=== PATIENT | male | born 1970 | race Caucasian/White ===

== ENCOUNTER 2020-08-06 15:42 | Emergency (ER) | payer OTHER ==
--- NOTE | 2020-08-06 15:48 | EDM.PDOC ---
ED HPI GENERAL MEDICAL PROBLEM - General Chief Complaint: Lower Extremity Injury/Pain Stated Complaint: FELL Time Seen by Provider: 08/06/20 15:44 - History of Present Illness INITIAL COMMENTS - FREE TEXT/NARRATIVE: History of present illness: [] This patient fell from standing. He injured his left foot when he fell over a piece of equipment. The left lower extremity has pain at the lower third of the tibial area. It was splinted by EMS on arrival and then he was brought to us. His last meal was a meal about 1 or 1:30 PM. He is not on a blood thinner. He has no medical problem that would preclude him to have an operation if he needs it. He had neurovascular structures intact. As you tried to bear weight or had it moves her head it touched it caused the pain to be severe and intolerable. He denies any other injury. He is in his usual state of health until this happened. Review of systems: As per history of present illness and below otherwise all systems reviewed and negative. Past medical history: As per history of present illness and as reviewed below otherwise noncontributory. Surgical history: As per history of present illness and as reviewed below otherwise noncontributory. Social history: No reported history of drug or alcohol abuse. Family history: As per history of present illness and as reviewed below otherwise noncontributory. Physical exam: Constitutional - well developed, well-nourished and in no acute distress HEENT - normocephalic, no evidence of trauma - external nose and mouth normal - no mass in neck and no JVD - mucosae moist EYES - full EOM, PERRL, no icterus - no evidence of inflammation, injection, or drainage Respiratory - no respiratory distress, equal bilateral expansion, lungs clear to auscultation and no abnormal lung sounds Cardiovascular - Regular Rhythm with S1 and S2 appreciated and no murmur, gallop or rub. DP pulse strong in the left lower extremity with PT faint color is good and capillary refill normal in the distal left lower extremity. GI - abdomen soft without distension or organomegaly - normal bowel sounds - no guard or rebound Musculoskeletal tenderness in the left leg at the junction between the middle and lower third. There appears to be some crepitation though there is no obvious deformity now. He was maintained in as neutral position as possible without moving the lower extremity and personnel instructed to be careful not to move without a place while we went through the process of getting the x-rays and applying a splint. No gross deformity of long bones or joints - no tenderness, swelling or edema Neurologic - Alert and oriented times four - CN II-XII grossly intact - motor sensory and coordination symmetrically normal. Sensation intact in the distal left lower extremity as is motor function Psychiatric - appropriate mood and affect with normal thought content Hematologic - No petechiae or purpura - mucosa appropriate color and sclera not pale - normal nail bed color and refill Integument - no rash or evidence of trauma - normal turgor Diagnostics: [] Therapeutics: [] Impression: [] Plan: [] Definitive disposition and diagnosis as appropriate pending reevaluation and review of above. - Related Data Allergies Allergy/AdvReac Type Severity Reaction Status Date / Time No Known Allergies Allergy Verified 08/06/20 16:18 Home Meds: Home Meds . [No Known Home Meds] 08/06/20 [History] Review of Systems - Review of Systems Review Of Systems: Comprehensive ROS is negative, except as noted in HPI. ED EXAM, GENERAL - Physical Exam Exam: See Below Free Text/Narrative:: My physical exam is in the HPI Course - Vital Signs Text/Narrative:: X-ray shows a slightly displaced proximal fibular fracture and a lower tibia fracture. Splint was applied and the capillary refill color warmth and motor function of the distal toes was preserved. I discussed the case with the orthopedist at [facility]. He reviewed the situation and told me that if neurovascular structures were intact we can splint him and follow-up in the clinic in 2 days. Last Recorded V/S: Last Vital Signs Temp 36.7 C 08/06/20 16:05 Pulse 88 08/06/20 16:37 Resp 12 08/06/20 16:37 BP 141/92 H 08/06/20 16:37 Pulse Ox 97 08/06/20 16:37 - Orders/Labs/Meds Orders: Active Orders 24 hr Category Date Time Status COMPREHENSIVE METABOLIC PN,CMP [CHEM] Stat Lab 08/06/20 16:41 Received DME for Discharge [COMM] Stat Oth 08/06/20 16:50 Ordered Labs: Laboratory Tests 08/06/20 Range/Units 16:41 WBC 14.94 H (4.0-11.0) K/uL RBC 5.00 (4.50-5.90) M/uL Hgb 15.0 (13.0-17.0) g/dL Hct 45.1 (38.0-50.0) % MCV 90.2 (80.0-98.0) fL MCH 30.0 (27.0-32.0) pg MCHC 33.3 (31.0-37.0) g/dL RDW Std Deviation 45.1 (28.0-62.0) fl RDW Coeff of Sophia 14 (11.0-15.0) % Plt Count 278 (150-400) K/uL MPV 11.20 (7.40-12.00) fL Neut % (Auto) 74.1 (48.0-80.0) % Lymph % (Auto) 18.8 (16.0-40.0) % [place] % (Auto) 6.0 (0.0-15.0) % Eos % (Auto) 0.9 (0.0-7.0) % Baso % (Auto) 0.2 (0.0-1.5) % Neut # (Auto) 11.1 H (1.4-5.7) K/uL Lymph # (Auto) 2.8 H (0.6-2.4) K/uL [place] # (Auto) 0.9 H (0.0-0.8) K/uL Eos # (Auto) 0.1 (0.0-0.7) K/uL Baso # (Auto) 0.0 (0.0-0.1) K/uL Nucleated RBC % 0.0 /100WBC Nucleated RBCs # 0 K/uL Meds: Medications Discontinued Medications Generic Name Dose Route Start Last Admin Trade Name Freq PRN Reason Stop Dose Admin Morphine Sulfate 4 mg 08/06/20 16:06 08/06/20 16:21 Morphine 4 Mg/Ml Syringe IVPUSH 08/06/20 16:07 4 mg ONETIME ONE Administration Morphine Sulfate 4 mg 08/06/20 16:32 08/06/20 16:40 Morphine 4 Mg/Ml Syringe IVPUSH 08/06/20 16:33 4 mg ONETIME ONE Administration Morphine Sulfate Confirm 08/06/20 16:32 08/06/20 16:38 Morphine 4 Mg/Ml Syringe Administered 08/06/20 16:33 Not Given Dose 4 mg .ROUTE .STK-MED ONE Ondansetron HCl 4 mg 08/06/20 16:32 08/06/20 16:40 Ondansetron 4 Mg/2 Ml Sdv IVPUSH 08/06/20 16:33 4 mg ONETIME ONE Administration Ondansetron HCl Confirm 08/06/20 16:32 08/06/20 16:38 Ondansetron 4 Mg/2 Ml Sdv Administered 08/06/20 16:33 Not Given Dose 4 mg .ROUTE .STK-MED ONE Departure - Departure Time of Disposition: 17:15 Disposition: Home, Self-Care 01 Clinical Impression: Fracture, fibula, proximal, Fracture of distal end of tibia - Discharge Information Instructions: Tibial and Fibular Fractures Forms: ED Department Discharge Additional Instructions: The following information is given to patients seen in the emergency department who are being discharged to home. This information is to outline your options for follow-up care. We provide all patients seen in our emergency department with a follow-up referral. The need for follow-up, as well as the timing and circumstances, are variable depending upon the specifics of your emergency department visit. If you don't have a primary care physician on staff, we will provide you with a referral. We always advise you to contact your personal physician following an emergency department visit to inform them of the circumstance of the visit and for follow-up with them and/or the need for any referrals to a consulting specialist. The emergency department will also refer you to a specialist when appropriate. This referral assures that you have the opportunity for follow-up care with a specialist. All of these measure are taken in an effort to provide you with optimal care, which includes your follow-up. Under all circumstances we always encourage you to contact your private physician who remains a resource for coordinating your care. When calling for follow-up care, please make the office aware that this follow-up is from your recent emergency room visit. If for any reason you are refused follow-up, please contact the [facility] Emergency Department at and asked to speak to the emergency department charge nurse. We have listed the numbers for the orthopedic clinic as well as occupational health if you need assistance with workman comp. Please ice and elevate the extremity. Do not get the splint wet as this will alter the mold of the splint. We have given you a prescription for [place] for any severe pain you may experience. You may also use Tylenol and Motrin for discomfort. Return to the ED for any changes or worsening symptoms. [facility] [address] [place] [address] [facility] [address] [place] [address] My Occupational Health Clinic [facility] [address] [place] [id number] [facility] [address] [place] [address], [address] [place] [address] Sepsis Event Note (ED) - Focused Exam Vital Signs: Vital Signs Temp Pulse Resp BP Pulse Ox 08/06/20 16:37 88 12 141/92 H 97 08/06/20 16:05 36.7 C 89 20 131/89 96 08/06/20 16:00 36.7 C 89 20 131/89 96 - My Orders Last 24 Hours: My Active Orders 08/06/20 16:41 COMPREHENSIVE METABOLIC PN,CMP [CHEM] Stat 08/06/20 16:50 DME for Discharge [COMM] Stat - Assessment/Plan Last 24 Hours: My Active Orders 08/06/20 16:41 COMPREHENSIVE METABOLIC PN,CMP [CHEM] Stat 08/06/20 16:50 DME for Discharge [COMM] Stat
[2020-08-06] MEDS ORDERED: Morphine 4 MG/ML Syringe IVPUSH ONE ×2 (16:06→16:32)
[2020-08-06] MEDS ORDERED: Ondansetron 4 MG/2 ML SDV IVPUSH ONE (16:32)
[2020-08-06] MEDS ORDERED: Morphine 4 MG/ML Syringe ONE (16:32)
[2020-08-06] MEDS ORDERED: Ondansetron 4 MG/2 ML SDV ONE (16:32)
--- NOTE | 2020-08-06 16:47 | CR ---
INDICATION: Pain after injury. COMPARISON: None available. FINDINGS: AP and lateral views of the left tibia and fibula were obtained. There is a comminuted, oblique fracture of the mid-distal fibular shaft with 30 percent posterior and lateral displacement of the major distal fracture fragment. There is an acute, oblique fracture of the proximal fibular shaft with 30 percent anterior displacement of the distal fracture fragment. There is no sign of additional fracture, dislocation, or joint effusion. The soft tissues are normal in appearance without sign of radio-opaque foreign body. No degenerative disease is seen in the visualized portions of the knee and ankle. IMPRESSION: Acute, mildly displaced, oblique, comminuted fracture of the mid-distal tibial shaft. Acute, mildly displaced, oblique fracture of the proximal fibular shaft. Dictated by Werner Dias MD @ 08/06/2020 4:45:[address] Werner Dias @ Aug 06 2020 4:45PM
[2020-08-06 17:25] LABS: BLOOD UREA NITROGEN,BUN 19 mg/dL (7.0-18.0); CARBON DIOXIDE,CO2 24.3 mmol/L (21.0-32.0); CHLORIDE,CL 103 mmol/L (98-107); GLUCOSE RANDOM 128 mg/dL (74-106); POTASSIUM,K 4.4 mmol/L (3.5-5.1); SODIUM,NA 136 mmol/L (136-148)
== END 2020-08-06 17:27 | disposition home or self-care (01) ==
LOC: MW.ED 15:42
DX: S82.832A Other fracture of upper and lower end of left fibula, initial encounter for closed fracture (principal); S82.392A Other fracture of lower end of left tibia, initial encounter for closed fracture; W20.8XXA Other cause of strike by thrown, projected or falling object, initial encounter
CPT/HCPCS: 29505; 36415; 73590; 80053; 85025; 96374; 96375; 99284; J2270; J2405; 29515; 99283